=== PATIENT | male | born 1955 | race Caucasian/White ===

== ENCOUNTER 2017-10-14 10:47 | Day surgery (SDC) | payer OTHER, SELFPAY ==
[2017-10-10 11:06] VITALS: BMI 22.8
[2017-10-14] VITALS (7 sets, daily range): BP systolic 104–126; BP diastolic 61–84; PULSE 69–84; RESP 11–18; TEMP 36.3–36.9; O2SAT 95–98; BMI 22.8
--- NOTE | 2017-10-14 10:03 | PM.HP.1 ---
History of Present Illness Date Patient Seen: 10/14/17 Time Patient Seen: 10:03 Chief complaint: [id number] Narrative: The patient is a gentleman who had a right colectomy for an ascending colon tumor in March this year. His last colonoscopy was prior to that. He is here for his 1st postop colonoscopy. He was recently seen by my partner Dr. Martinez regarding inguinal hernia. Patient History Medical History History of tattoo (Acute) Nephrolithiasis (Acute) No significant past surgical history (Acute) Right inguinal hernia (Acute) Colon cancer (Chronic) Surgical History S/P right colectomy (Resolved) Family & Social History Family History: Reviewed 10/14/17 by Keenan Mccall MD Social History: household members none Tobacco & Substance use: Smoking Status Former smoker alcohol intake current Substance Use Type marijuana Meds Home Medications Medication Instructions Recorded Confirmed Type No Known Home Medications 10/01/17 10/10/17 History Allergies Allergy/AdvReac Type Severity Reaction Status Date / Time No Known Drug Allergies Allergy Unverified 10/10/17 11:07 Review of Systems Review of Systems All systems reviewed & are unremarkable except as noted in HPI and below Exam Narrative Exam Narrative: Operative no apparent distress. Lungs are clear to auscultation no rales or rhonchi heart regular rate and rhythm no murmur or gallop abdomen is scaphoid soft nontender without mass. No hernias in his colon resection incisions. Assessment & Plan Plan: Assessment/Plan Narrative: Patient for a colonoscopy post colon resection. I have discussed the procedure and rationale. Risks of bleeding, perforation which would necessitate a major operation, failure to find removal lesions was discussed. Unlikely all find any large polyps.
--- NOTE | 2017-10-14 10:06 | PM.PREOP ---
Pre-operative Note Interval Note Pre-op Check: Yes History & Physical exam performed today by Physician Changes: No ASA Class (for procedural sedation): II
[2017-10-14] MEDS: LACTATED RINGERS 1,000 ML 100 ML IV ×2 (11:49→13:21)
--- NOTE | 2017-10-14 12:36 | PM.PREOP ---
Pre-operative Note Interval Note Pre-op Check: Yes History & Physical Reviewed by Physician and Yes Exam Performed Changes: No H&P completed within 30 days and has changed as indicated here:: Patient seen and examined again today. History physical examination as placed on the chart within the last 30 days has not changed. Patient marked for surgery in the preoperative area. Proceed with right inguinal hernia repair today as planned.
[2017-10-14] MEDS: CEFAZOLIN 2 GM/100 ML FROZ.PIGGY IV (12:38)
--- NOTE | 2017-10-14 13:01 | SUR.OPER ---
Supine on padded OR bed, head on pillow, arms secured on padded arm boards at <90 degrees abduction, legs uncrossed, safety belt at thigh, tape over blanket over lower legs.
[2017-10-14] MEDS: LIDOCAINE 1% W/EPI INJ 20 ML INJ (13:07)
[2017-10-14] MEDS: BUPIVACAINE 0.5% (PF) VIAL 30 ML INJ (13:07)
[2017-10-14] MEDS: CEFAZOLIN 1 GM VIAL IV (13:24)
--- NOTE | 2017-10-14 14:23 | PM.OP.1 ---
Operative Date/Time/Diagnoses Date of procedure: 10/14/17 Time of procedure: 14:23 Pre-op diagnosis: Symptomatic right inguinal hernia Post-op diagnosis: other (Symptomatic indirect right inguinal hernia) Procedure & Clinicians Procedure: Open right inguinal hernia repair with mesh Same procedure as scheduled: Yes Indications: 62-year-old male who presented with symptomatic right inguinal mass. Examination and evaluation were consistent with hernia. Open repair with mesh was recommended. Surgeon: Lester Martinez Click Yes if Unassisted: Yes Anesthesia Type: General Operative Notes Findings: 1. Reducible indirect right inguinal hernia with moderate lipoma of the cord 2. Testicles in normal descended position at conclusion of the case, but left testicle is atrophic compared to a mildly hypertrophic right testicle 3. No evidence of direct inguinal hernia in the right side Closure Type: primary Specimen(s): none sent Implants & Drains: Small size polypropylene Pro Loop mesh plug and onlay patch right inguinal canal Estimated Blood Loss (mL): 5 Blood products transfused: none Procedure in detail: After obtaining informed consent the patient was brought to the operating room placed supine on the table. After satisfactory induction of anesthesia the abdomen, groin, and genitalia were prepped and draped in usual sterile fashion. A SCOAP time-out was performed per standard protocol. Transverse incision was designed along the lower aspect of the right inguinal canal for a distance of approximately 3 cm then infiltrated with a 1: 1 mixture of 1% lidocaine with 1: 100,000 epinephrine and 0.5% plain Marcaine for postoperative analgesia. Skin incision was created with 10 scalpel blade followed by the Bovie for hemostasis. Dissection was carried down through the subcutaneous tissue to the external oblique fascia. A single superficial epigastric vein was divided between hemostats and secured with 2 0 Vicryl ties. A Weitlaner retractor was used to provide exposure. External oblique fascia was divided in the direction of its fibers with a 15 scalpel blade followed by Metzenbaum scissors through the external inguinal ring. Edges of the fascia was secured with hemostats. Blunt dissection revealed the iliopubic tract, conjoined tendon, and rectus fascia. Ilioinguinal nerve was also clearly identified and preserved throughout the entire case. Spermatic cord was encircled with the surgeon's fingers followed by a [place] drain. Meticulous blunt dissection using DeBakey forceps was employed to skeletonize the spermatic cord with findings as above. Pro Loop mesh plug and patch were brought onto the operative field and soaked in Ancef solution. Plug was placed in the indirect inguinal ring and secured with interrupted 2 0 Vicryl suture to adjacent connective tissue. Onlay patch was placed on the floor the inguinal canal secured with interrupted 0 Tycron suture. Anteriorly the mesh was secured to the conjoined tendon while laterally was secured to the iliopubic tract. Medially the mesh was secured to the rectus fascia. Tails of the mesh were brought around the spermatic cord and placed deep to the external oblique fascia with a were secured with a single 0 Tycron suture. Defect in the mesh was noted to easily admit the spermatic cord without strangulation. Wound was irrigated with copious amounts of sterile saline solution and hemostasis was verified. Cord was placed back in its usual anatomic position and the external oblique fascia was closed over the cord with running 3 0 Vicryl suture. Subcutaneous tissue was closed with interrupted 3 0 Vicryl suture. Skin was closed in a running subcuticular fashion with 4 0 Monocryl suture. Dermal adhesive was applied. Anesthesia was reversed and the patient extubated in the operating room. He was taken recovery stable condition. Complications: none Condition: stable Disposition: PACU Plan for aftercare: 1. Discharge to home 2. Follow up in surgery Clinic in 2 weeks
--- NOTE | 2017-10-14 14:52 | SUR.PHASEII ---
Continues to deny pain c/o only of mild tightness in groin. declines pain medication at the time. No nausea tolerating beverage and snack.
[2017-10-14] MEDS: OXYCODONE/ACETAMINOPHEN 5/325 TABLET 1 TAB PO (15:00)
== END 2017-10-14 15:20 | disposition home or self-care (01) ==
PROVIDERS: PCP Family Medicine; Visit Provider Surgery
PROC: (CPT 49505; principal; 2017-10-14 14:45)
DX: K40.90 Unilateral inguinal hernia, without obstruction or gangrene, not specified as recurrent (principal); Z87.891 Personal history of nicotine dependence; D17.6 Benign lipomatous neoplasm of spermatic cord
CPT/HCPCS: 49505; C1781; J0690; J1100; J2250; J2405; J2704; J3010

== ENCOUNTER → 2020-04-19 12:25 | Outpatient (CLI) | payer OTHER, SELFPAY ==
--- NOTE | 2020-04-19 | DI.RAD.S_ITS ---
PROCEDURE: XR KNEE RT 3V INDICATIONS: RIGHT KNEE PAIN/CHEST PAIN TECHNIQUE: 3 views of the knee were acquired. COMPARISON: None. FINDINGS: Bones: No fractures or dislocations. No suspicious bony lesions. Mild narrowing of the medial femorotibial joint and tricompartmental periarticular osteophyte formation. Soft tissues: Trace joint effusion. No suspicious soft tissue calcifications. Chondrocalcinosis. IMPRESSION: 1. Mild tricompartmental knee joint degeneration, most notably involving the medial femorotibial joint. 2. Chondrocalcinosis. Differential diagnosis includes but is not limited to hemochromatosis, hyperparathyroidism and CPPD. Dictated by: Bello Rivas [facility] Interpreted: Anthony Sommer MD on 04/19/2020 at 13:48 Approved by: Anthony Sommer M.D. on 04/19/2020 at 16:12
--- NOTE | 2020-04-19 | DI.RAD.S_ITS ---
PROCEDURE: XR CHEST 2V INDICATIONS: RIGHT KNEE PAIN/CHEST PAIN TECHNIQUE: 2 views of the chest were acquired. COMPARISON: None. FINDINGS: Surgical changes and devices: None. Lungs and pleura: Lungs are clear. No pleural effusions or pneumothorax. Mediastinum: Mediastinal contours are normal. Heart size is normal. Bones and chest wall: No suspicious bony abnormalities. Soft tissues appear unremarkable. IMPRESSION: Normal for age, source of current chest pain symptoms is not seen. Dictated by: Rene Lucas M.D. on 04/19/2020 at 13:03 Approved by: Rene Lucas M.D. on 04/19/2020 at 13:03
== END ==
PROVIDERS: PCP Family Medicine; Referring Provider Family Medicine; Visit Provider Family Medicine
DX: R07.9 Chest pain, unspecified (principal); M25.561 Pain in right knee; M17.11 Unilateral primary osteoarthritis, right knee; M11.261 Other chondrocalcinosis, right knee
CPT/HCPCS: 71046; 73562

== ENCOUNTER → 2020-05-10 09:40 | Outpatient (CLI) | payer OTHER, SELFPAY ==
[2020-05-10 11:22] LABS: COVID19 -Nasal RAPID Negative (Negative)
== END ==
PROVIDERS: PCP Family Medicine; Visit Provider Student in an Organized Health Care Education/Training Program
DX: Z20.822 Contact with and (suspected) exposure to COVID-19 (principal)
CPT/HCPCS: 87635

== ENCOUNTER → 2020-05-11 14:56 | Outpatient (CLI) | payer OTHER, SELFPAY ==
--- NOTE | 2020-05-11 14:57 | DI.NM.S_ITS ---
PROCEDURE: NM EXERCISE TREADMILL NON NUC COMPARISON: None. INDICATIONS: Other chest pain FINDINGS: patient exercised for 13 minutes and 5 seconds, reaching 14.8 METS and BARON -51%. 103% of maximum predicted heart reached. Appropriate BP response to exercise. Mild horizontal ST depressions in the inferior leads during recovery. No ectopy. IMPRESSION: Abnormal stress test due to mild horizontal ST depressions in the inferior leads during recovery. No angina during the study. Outstanding exercise tolerance (14.8 METs, BARON -51%). Recommend repeat stress test with imaging (example treadmill nuclear stress test at [facility]) to rule out falsely abnormal result that can be seen in women on plain treadmill study. Dictated by: Susy Torres MD on 05/11/2020 at 16:41 Approved by: Susy Torres MD on 05/11/2020 at 16:45
--- NOTE | 2020-05-11 15:46 | PM.TREADMILL ---
Cardiac Stress Test Report Referral & Results Date Patient Seen: 05/11/20 Time Patient Seen: 15:46 Requesting provider: Marquez Antonio Indication: chest pain Rest ECG: Sinus rhythm Procedure Note: Standard Kalin protocol, 13:05, 13.7 METS Excellent exercise capacity, BARON -51% Normal hemodynamic response to exercise No chest pain or anginal symptoms less than [address] depression in II, III, aVF, V4 No ectopy Impression: Normal exercise stress test Please note: Actual ECG tracings can be found in the PACS system.
== END ==
PROVIDERS: PCP Family Medicine; Referring Provider Family Medicine; Visit Provider Family Medicine
DX: R07.89 Other chest pain (principal)
CPT/HCPCS: 93017

== ENCOUNTER → 2020-07-01 09:03 | Outpatient (CLI) | payer OTHER, SELFPAY ==
[2020-07-01 11:14] LABS: COVID19 -Nasal RAPID Negative (Negative)
== END ==
PROVIDERS: PCP Family Medicine; Referring Provider Physician Assistant; Visit Provider Physician Assistant
DX: Z01.812 Encounter for preprocedural laboratory examination (principal); Z20.822 Contact with and (suspected) exposure to COVID-19
CPT/HCPCS: 87635

== ENCOUNTER → 2020-07-03 09:58 | Outpatient (CLI) | payer OTHER, SELFPAY ==
--- NOTE | 2020-07-04 14:43 | DI.NM.S_ITS ---
DATE OF SERVICE: PROCEDURE: Exercise perfusion study. DATE OF STUDY: July 03, 2020 INDICATIONS: Chest pain, strong family history of coronary artery disease. RADIOPHARMACEUTICAL: 26.6 millicurie technetium-99m Myoview IV was injected at stress and 26.0 millicurie technetium-99m Myoview IV was injected at rest. CARDIAC STRESS: The patient underwent exercise perfusion study under the supervision of an attending staff. The patient walked on Kalin protocol for 11 minutes and 30 seconds and achieved 91 percent of target heart rate, normal blood pressure response, 12.8 METs of workload and functional aerobic impairment -23 percent. No chest pain. [place] mild dyspnea and leg fatigue. Baseline rhythm was sinus with intermittent PACs. During stress, no convincing ischemic changes seen. In recovery, PACs were returned. Rare PVCs were seen. No obvious atrial fibrillation or ventricular tachycardia. Baseline blood pressure was 120/80. Peak blood pressure 166/80. RAW DATA: There is increased subdiaphragmatic activity. GATED STUDY: Stress LV ejection fraction 66 percent without any obvious wall motion abnormalities. Resting end-diastolic volume 121 mL. TID ratio 0.97 which is within normal limits. Lung/heart ratio 0.33 which is within normal limits. MYOCARDIAL PERFUSION SCAN: The stress supine and resting supine images revealed small size, mildly decreased perfusion of base to mid inferior wall which was resolved during prone images suggestive of diaphragmatic tissue attenuation artifact. Stress prone images revealed normal myocardial perfusion. CONCLUSION: I will call this study a normal myocardial perfusion study with evidence of diaphragmatic tissue attenuation artifact which was resolved during prone images. Good exercise tolerance. Functional aerobic impairment -23 percent. Preserved left ventricular function. No ischemic changes. Baseline frequent PACs. No obvious atrial fibrillation or ventricular tachycardia seen. Normal hemodynamic response. Overall, this is a low-risk myocardial perfusion study. Lexa Marquez - DANI/elizabeth/JEFFERY doc#: [id number]/job#: [id number] dd: 07/04/2020 13:22:00 dt: 07/04/2020 14:17:00 DICTATING MD/COPIES TO: Tere Blankenship MD COPIES MNE: YEYO;
== END ==
PROVIDERS: PCP Family Medicine; Referring Provider Family Medicine; Visit Provider Family Medicine
DX: R07.89 Other chest pain (principal); Z82.49 Family history of ischemic heart disease and other diseases of the circulatory system
CPT/HCPCS: 78452; 93017; A9502

== ENCOUNTER → 2022-03-15 12:24 | Outpatient (CLI) | payer OTHER, SELFPAY ==
--- NOTE | 2022-03-15 12:25 | DI.RAD.S_ITS ---
PROCEDURE: XR FINGER LT MIN 2V INDICATIONS: Laceration rule out open fracture TECHNIQUE: AP hand, 2 views of the 4th finger(s) acquired. COMPARISON: None. FINDINGS: Bones: No fractures or dislocations. No suspicious bony lesions. Soft tissues: No suspicious soft tissue calcifications. IMPRESSION: No fracture or foreign body seen distal 4th digit. Dictated by: Rene Lucas M.D. on 03/15/2022 at 13:53 Approved by: Rene Lucas M.D. on 03/15/2022 at 13:54
== END ==
PROVIDERS: PCP Family Medicine; Referring Provider Nurse Practitioner Family; Visit Provider Nurse Practitioner Family
DX: S61.215A Laceration without foreign body of left ring finger without damage to nail, initial encounter (principal); X58.XXXA Exposure to other specified factors, initial encounter
CPT/HCPCS: 73140

== ENCOUNTER → 2022-03-27 19:30 | Outpatient (ROUT) | payer OTHER, SELFPAY | PROVIDERS: PCP Family Medicine; Visit Provider Dermatology | DX: L08.9 Local infection of the skin and subcutaneous tissue, unspecified (principal) | CPT/HCPCS: 87070; 87075; 87205 ==

== ENCOUNTER 2022-04-02 08:25 | Day surgery (SDC) | payer OTHER, SELFPAY ==
[2022-04-02] MEDS: LACTATED RINGERS 1,000 ML 200 ML IV (08:42)
[2022-04-02 08:58] VITALS: BP 125/89; PULSE 68; RESP 16; TEMP 36.4; O2SAT 98; BMI 25.1
--- NOTE | 2022-04-02 09:28 | P.HP_ITS ---
History of Present Illness History of Present Illness Date Patient Seen: 04/02/22 Time Patient Seen: 09:28 Chief complaint: Colonoscopy Narrative: The patient presents for colorectal screening. They have never had any previous examination for such. No personal or family history of colon cancer. On further history denies any recent gastrointestinal symptoms. No nausea, vomiting, abdominal pain, loss of appetite, unexplained weight loss, change in bowel habits, or blood per rectum. Patient History Medical History (Updated 04/02/22 @ 09:30 by Antony Magaña MD) History of tattoo Nephrolithiasis Right inguinal hernia Surgical History (Updated 04/02/22 @ 09:30 by Antony Magaña MD) No significant past surgical history Family & Social History Family History Father Heart disease Social History: household members none Tobacco & Substance use: Smoking Status Former smoker alcohol intake never Substance Use Type does not use Meds Home Medications and Allergies Home Medications Medication Instructions Recorded Confirmed Type aspirin 81 mg capsule 81 mg PO DAILY 04/02/22 04/02/22 History Allergies Allergy/AdvReac Type Severity Reaction Status Date / Time No Known Drug Allergies Allergy Verified 04/02/22 08:46 Exam Vital Signs (past 8 hours): - 04/02/22 08:58 Temperature 97.6 F Pulse Rate 68 Respiratory Rate 16 Blood Pressure 125/89 Pulse Oximetry 98 Oxygen Delivery Method Room Air Oxygen Delivery Method Room Air Narrative Exam Narrative: General adult man alert oriented no acute distress Assessment & Plan Assessment & Plan narrative: The patient requires colorectal screening and colonoscopy is recommended. T echnical details were discussed. Risks, benefits, alternatives explained. Risks including but not limited to myocardial infarction, aspiration, bleeding, pain, missed lesion, incomplete examination, need for further radiographic studies, colonic perforation, and need for major abdominal surgery were discussed. All questions were answered to their satisfaction, and they are in agreement with this plan. Time Spent With Patient Critical Care time: I spent a total of [] minutes of critical care time on this patient's care today; this time is exclusive of procedural time.
[2022-04-02 09:56] VITALS: BP 103/71; PULSE 67; RESP 10; TEMP 36.4; O2SAT 96
[2022-04-02 10:01] VITALS: BP 107/80; PULSE 61; RESP 12; TEMP 36.4; O2SAT 97
--- NOTE | 2022-04-02 10:03 | PM.OP.COLON ---
Operative Date/Time/Diagnoses Date of procedure: 04/02/22 Time of procedure: 10:03 Pre-op diagnosis: Colorectal screening Post-op diagnosis: same Procedure & Clinicians Study performed: Colonoscopy Same procedure as scheduled: Yes Indications: Colorectal screening Surgeon: Antony Magaña Procedure Notes Procedure in detail: The history and physical was performed/updated and the patient is ASA class is 2. The procedure was discussed in detail with the patient. Potential risks complications including infection, bleeding, missed diagnosis, perforation, need for surgery, and were explained. Their questions were answered and informed consent was obtained. Patient was brought to the procedure room and placed standard monitoring equipment. The patient's vital signs were monitored continuously throughout the entire procedure. Prior to starting time-out was performed. The patient was placed in the left lateral recumbent position. Procedural sedation was administered by anesthesia. Examination began with a thorough inspection of the perianal area there was no evidence of fissures, fistulae, external hemorrhoids or cutaneous malignancy. The colonoscopy scope was then placed into the anal canal and was advanced to the cecum, which was identified by the ileocecal valve, the appendiceal orifice and the confluence of the taenia. The scope was then slowly withdrawn examining colon thoroughly in all directions, irrigating it of any residual stool. There were no masses polyps or inflammation within the colon. Normal healthy colon. The patient tolerated the procedure well. They will be discharged once criteria are met. The prep was of good/excellent quality. The withdrawl time was 6 minutes. Impression: Normal colonoscopy Post-procedure Recommendations: Colonoscopy in 10 years and High fiber diet Disposition: same day surgery
[2022-04-02 10:11] VITALS: BP 117/76; PULSE 59; RESP 12; TEMP 36.6; O2SAT 98
== END 2022-04-02 10:14 | disposition home or self-care (01) ==
PROVIDERS: PCP Family Medicine; Referring Provider Surgery; Visit Provider Surgery
PROC: 0DJD8ZZ Inspection of Lower Intestinal Tract, Via Natural or Artificial Opening Endoscopic (ICD-10-PCS; CPT 45378; principal; 2022-04-02 09:30)
DX: Z12.11 Encounter for screening for malignant neoplasm of colon (principal)
CPT/HCPCS: 45378; J2704

== ENCOUNTER → 2024-06-01 14:34 | Outpatient (CLI) | payer MEDICARE, OTHER, SELFPAY ==
--- NOTE | 2024-06-01 14:38 | DI.RAD.S_ITS ---
PROCEDURE: XR ANKLE LT MIN 3V INDICATIONS: Pain in left ankle and joints of left foot TECHNIQUE: 3 views of the ankle were acquired. COMPARISON: None. FINDINGS: Bones: No fractures or dislocations. Ankle mortise is normally aligned. Mild midfoot and hindfoot joint osteoarthritic changes are seen. No suspicious bony lesions. Soft tissues: No tibiotalar joint effusion. Achilles tendon appears normal. IMPRESSION: No acute fracture or dislocation. Mild midfoot and hindfoot joint osteoarthritis. If indicated, MRI of ankle can be done for evaluation of internal derangement. Dictated by: Warner England M.D. on 06/01/2024 at 17:11 Approved by: Warner England M.D. on 06/01/2024 at 17:11
== END ==
PROVIDERS: PCP Family Medicine; Referring Provider Family Medicine; Visit Provider Family Medicine
DX: M19.072 Primary osteoarthritis, left ankle and foot (principal); M25.572 Pain in left ankle and joints of left foot; G89.29 Other chronic pain
CPT/HCPCS: 73610